=== PATIENT | male | born 1990 | race Hispanic/Latino ===

== ENCOUNTER 2022-04-27 17:04 | Emergency (ER) | payer OTHER ==
[~2022-04-27] VITALS: Ht 170.2 cm; Wt 122.9 kg
[2022-04-27] MEDS ORDERED: ALBU8.5H8 IH (18:58)
[2022-04-27] MEDS ORDERED: PRED20TA3 PO (18:58)
[2022-04-27] MEDS ORDERED: BENZ-39 PO (18:58)
[2022-04-27] MEDS ORDERED: IBUP-2070 PO (18:58)
[2022-04-27] MEDS ORDERED: AZIT500T2 PO (18:58)
[2022-04-27 19:30] VITALS: BP 118/72
== END 2022-04-27 19:38 | disposition home or self-care (01) ==
LOC: EDH 17:04
DX: J40 Bronchitis, not specified as acute or chronic (principal); Z20.822 Contact with and (suspected) exposure to COVID-19
CPT/HCPCS: 99285; 71045; 87635; 87880; 87804 ×2; 93005; C9803

== ENCOUNTER 2022-06-22 19:56 | Emergency (ER) | payer OTHER ==
[~2022-06-22] VITALS: Ht 177.8 cm; Wt 128.4 kg
[~2022-06-22 19:56] MED LIST: ALBU8.5H8 IH; AZIT500T2 PO; BENZ-39 PO; IBUP-2070 PO; PRED20TA3 PO
[2022-06-22 20:28] VITALS: BP 131/77
[2022-06-22] MEDS ORDERED: NAPR500T6 PO (22:12)
[2022-06-22] MEDS ORDERED: IBUPROFEN 600 MG TABLET PO ONE (22:30)
== END 2022-06-22 22:31 | disposition home or self-care (01) ==
LOC: EDH 19:56
DX: M25.561 Pain in right knee (principal); Z79.899 Other long term (current) drug therapy; W19.XXXA Unspecified fall, initial encounter; Y93.89 Activity, other specified; Y92.89 Other specified places as the place of occurrence of the external cause; Y99.8 Other external cause status
CPT/HCPCS: 29505; 73562

== ENCOUNTER → 2022-10-20 | Outpatient (CLI) | payer OTHER ==
[~2022-10-20] MED LIST changes: +NAPR500T6 PO
== END | disposition home or self-care (01) ==
LOC: LAB 10:59
PROVIDERS: ATTEND Internal Medicine
DX: E66.01 Morbid (severe) obesity due to excess calories (principal); R56.9 Unspecified convulsions; R07.9 Chest pain, unspecified; Z86.15 Personal history of latent tuberculosis infection
CPT/HCPCS: 36415; 71046; 86480

== ENCOUNTER → 2022-10-27 | Outpatient (CLI) | payer OTHER | END | disposition home or self-care (01) | LOC: RAH 15:16 | PROVIDERS: ATTEND Internal Medicine | DX: R56.9 Unspecified convulsions (principal) | CPT/HCPCS: 70450 ==

== ENCOUNTER → 2022-11-05 | Outpatient (CLI) | payer OTHER | END | disposition home or self-care (01) | LOC: RAH 13:25 | PROVIDERS: ATTEND Internal Medicine | DX: R55 Syncope and collapse (principal); E11.9 Type 2 diabetes mellitus without complications | CPT/HCPCS: 93306 ==

== ENCOUNTER → 2022-12-25 | Outpatient (CLI) | payer OTHER | END | disposition home or self-care (01) | LOC: SLP 20:31 | PROVIDERS: ATTEND Internal Medicine Critical Care Medicine | DX: G47.33 Obstructive sleep apnea (adult) (pediatric) (principal) | CPT/HCPCS: 95811 ==

== ENCOUNTER → 2023-02-23 | Outpatient (CLI) | payer OTHER | END | disposition home or self-care (01) | LOC: LAB 11:47 | PROVIDERS: ATTEND Psychiatry & Neurology Neurology | DX: G40.909 Epilepsy, unspecified, not intractable, without status epilepticus (principal) | CPT/HCPCS: 36415; 82565; 84520 ==

== ENCOUNTER → 2023-02-25 | Outpatient (CLI) | payer OTHER ==
[~2023-02-25] MED LIST changes: +GADOTERATE MEGLUMINE 10 MMOL/20 ML VIAL IV ONE
== END | disposition home or self-care (01) ==
LOC: RAH 13:07
PROVIDERS: ATTEND Psychiatry & Neurology Neurology
DX: G40.909 Epilepsy, unspecified, not intractable, without status epilepticus (principal)
CPT/HCPCS: 70553; A9575

== ENCOUNTER → 2023-08-02 | Outpatient (CLI) | payer OTHER ==
[~2023-08-02] MED LIST changes: -GADOTERATE MEGLUMINE 10 MMOL/20 ML VIAL IV ONE
[2023-08-02 09:49] LABS: APPEARANCE,URINE CLEAR (CLEAR); BILIRUBIN,URINE NEGATIVE (NEGATIVE); COLOR,URINE LIGHT-YELLOW (YELLOW); GLUCOSE, URINE (UA) NEGATIVE (NEGATIVE); KETONES,URINE NEGATIVE (NEGATIVE); LEUKOCYTE ESTERASE ,URINE NEGATIVE Leu/uL (NEGATIVE); NITRATE,URINE NEGATIVE (NEGATIVE); OCCULT BLOOD,URINE NEGATIVE (NEGATIVE); PROTEIN,URINE NEGATIVE (NEGATIVE); UROBILINOGEN,URINE 0.2 mg/dL (0.2-1.0)
[2023-08-02 09:50] LABS: ADD UA MICROSCOPIC NO
[2023-08-02 09:52] LABS: HEMOGLOBIN A1C 5.3 % (4.0-6.0)
[2023-08-02 09:56] LABS: ALBUMIN 3.9 g/dL (3.5-5.0); BILIRUBIN,TOTAL 0.3 mg/dL (0.2-1.0); POTASSIUM 4.9 mmol/L (3.5-5.1); TOTAL PROTEIN, SERUM 7.3 g/dL (6.0-8.3)
== END | disposition home or self-care (01) ==
LOC: LAB 08:56
PROVIDERS: ATTEND Family Medicine
DX: E11.9 Type 2 diabetes mellitus without complications (principal); R31.0 Gross hematuria; E78.5 Hyperlipidemia, unspecified; I10 Essential (primary) hypertension
CPT/HCPCS: 36415; 80053; 80061; 81003; 82043; 82570; 83036

== ENCOUNTER → 2024-02-04 | Outpatient (CLI) | payer OTHER ==
[2024-02-04 10:10] LABS: HEMOGLOBIN A1C 5.3 % (4.0-6.0)
[2024-02-04 10:17] LABS: ALBUMIN 4.1 g/dL (3.5-5.0); BILIRUBIN,TOTAL 0.8 mg/dL (0.2-1.0); POTASSIUM 4.3 mmol/L (3.5-5.1); TOTAL PROTEIN, SERUM 7.5 g/dL (6.0-8.3)
== END | disposition home or self-care (01) ==
LOC: LAB 08:59
PROVIDERS: ATTEND Family Medicine
DX: I10 Essential (primary) hypertension (principal); E11.9 Type 2 diabetes mellitus without complications; E78.5 Hyperlipidemia, unspecified
CPT/HCPCS: 36415; 80053; 80061; 82043; 82570; 83036

== ENCOUNTER 2024-07-31 20:16 | Emergency (ER) | payer OTHER ==
[~2024-07-31] VITALS: Ht 175.3 cm; Wt 83.0 kg
[~2024-07-31 20:16] MED LIST changes: +NAPR-1506 PO; -NAPR500T6 PO
[2024-07-31] MEDS: ibuPROFEN 800 MG TAB PO ONE (20:34)
[2024-07-31 20:45] LABS: RAPID GROUP A STREP negative (NEGATIVE)
[2024-07-31 21:01] LABS: COVID19 (SARS ANTIGEN RAPID) PRESUMPTIVE NEGATIVE (NEGATIVE); INFLUENZA TYPE B Negative For Type B (NEGATIVE)
[2024-07-31 21:09] LABS: INFLUENZA TYPE A Positive For Type A (NEGATIVE)
[2024-07-31] MEDS ORDERED: IBUP-2077 PO (21:28)
[2024-07-31] MEDS ORDERED: OSEL75 PO (21:28)
[2024-07-31] MEDS: OSELTAMIVIR PHOSPHATE 75 MG CAP PO ONE (21:38)
[2024-07-31 21:40] VITALS: BP 120/76; PULSE 92; RESP 16; TEMP 98.4; O2SAT 98
== END 2024-07-31 21:42 | disposition home or self-care (01) ==
LOC: EDH 20:16
DX: J10.1 Influenza due to other identified influenza virus with other respiratory manifestations (principal); R50.9 Fever, unspecified; E11.9 Type 2 diabetes mellitus without complications; Z20.822 Contact with and (suspected) exposure to COVID-19
CPT/HCPCS: 87426; 87804; 87880

== ENCOUNTER → 2024-12-28 | Outpatient (CLI) | payer OTHER ==
[~2024-12-28] MED LIST changes: +IBUP-2077 PO; +OSEL75 PO
[2024-12-28 10:41] LABS: BASOPHILS # (AUTO) 0.05 K/uL (0.00-0.20); BASOPHILS % (AUTO) 0.9 % (0.0-5.0); EOSINOPHILS # (AUTO) 0.17 K/uL (0.00-0.70); EOSINOPHILS % (AUTO) 2.9 % (0.0-8.0); IMMATURE GRANULOCYTE ABSOLUTE 0.06 K/uL (0-1); LYMPHOCYTES # (AUTO) 1.7 K/uL (1.0-4.8); LYMPHOCYTES % (AUTO) 29.6 % (21.0-51.0); MEAN CORPUSCULAR HEMOGLOBIN 28.9 pg (27.0-33.0); MEAN CORPUSCULAR HGB CONC 33.2 g/dL (32.0-36.0); MONOCYTES # (AUTO) 0.6 K/uL (0.1-1.0); NEUTROPHILS # (AUTO) 3.3 K/uL (1.8-7.7); NEUTROPHILS % (AUTO) 55.6 % (40.0-77.0); PLATELET COUNT (AUTO) 211 K/uL (130-400); RED CELL DISTRIBUTION WIDTH 12.9 % (11.0-15.5); WHITE BLOOD COUNT (AUTO) 5.9 K/uL (4.8-10.8)
[2024-12-28 10:45] LABS: APPEARANCE,URINE CLEAR (CLEAR); BILIRUBIN,URINE NEGATIVE (NEGATIVE); COLOR,URINE LIGHT-YELLOW (YELLOW); GLUCOSE, URINE (UA) NEGATIVE (NEGATIVE); KETONES,URINE NEGATIVE (NEGATIVE); LEUKOCYTE ESTERASE ,URINE NEGATIVE Leu/uL (NEGATIVE); NITRATE,URINE NEGATIVE (NEGATIVE); OCCULT BLOOD,URINE NEGATIVE (NEGATIVE); PROTEIN,URINE NEGATIVE (NEGATIVE); UROBILINOGEN,URINE 0.2 mg/dL (0.2-1.0)
[2024-12-28 10:47] LABS: ADD UA MICROSCOPIC NO
[2024-12-28 10:50] LABS: HEMOGLOBIN A1C 5.3 % (4.0-6.0)
[2024-12-28 11:04] LABS: ALBUMIN 3.9 g/dL (3.5-5.0); BILIRUBIN,TOTAL 0.4 mg/dL (0.2-1.0); POTASSIUM 4.8 mmol/L (3.5-5.1); THYROID STIMULATING HORMONE 5.73 uIU/mL (0.36-3.74); TOTAL PROTEIN, SERUM 7.2 g/dL (6.0-8.3)
== END | disposition home or self-care (01) ==
LOC: LAB 10:12
PROVIDERS: ATTEND Family Medicine
DX: I10 Essential (primary) hypertension (principal); E11.9 Type 2 diabetes mellitus without complications; E78.5 Hyperlipidemia, unspecified; R53.83 Other fatigue
CPT/HCPCS: 36415; 80053; 80061; 80177; 81003; 82043; 82570; 83036; 84270; 84402; 84403; 84439; 84443; 85025

== ENCOUNTER 2025-06-03 18:57 | Emergency (ER) | payer OTHER ==
[~2025-06-03] VITALS: Ht 175.3 cm; Wt 106.1 kg
[~2025-06-03 18:57] MED LIST changes: +IBUP-1492 PO; -IBUP-2070 PO
--- NOTE | 2025-06-03 19:08 | NUR ---
PT CARE ASSUMED AT THIS TIME
--- NOTE | 2025-06-03 19:40 | ERN ---
ED Note History of Present Illness Stated Complaint: MULTIPLE COMPLAINTS Chief Complaint: Multiple Complaints Time Seen by MD: 19:17 Dictation: This is a 34-year-old male who presented to the emergency room with complaints of generalized weakness fevers and nausea vomitings diarrhea all going on for the past 4 days. He denied any blood in the vomit or diarrhea. Nerve was also sick prior to his symptoms He has taken [place] medication Imodium and some other medication but continued to have watery diarrhea and hence he came in for evaluation. No abdominal discomfort. No hematemesis or blood in the stool. Temperature 99.6 pulse 102 respirations 15 blood pressure 139/65 with a pulse oximetry of 97% on room air Patient has a known history of diabetes mellitus type 2 Allergies: Coded Allergies: No Known Drug Allergies (Unverified Allergy, Unknown, 07/31/24) Uncoded Allergies: NKDA (Allergy, Unknown, 11/11/20) Home Meds Active Scripts Nirmatrelvir/Ritonavir (Paxlovid 150-100 mg (Moderate)) 150 Mg (10)-100 Mg (10) Tab.ds.pk, 1 EACH PO BID for 5 Days, #10 TAB 0 Refills Prov:HEIDE SPRING MD 06/03/25 Prednisone (Prednisone) 20 Mg Tablet, 1 TAB PO AD for 6 Days, #14 TAB 0 Refills TAKE 1 TAB BY MOUTH THREE TIMES PER DAY X3 DAYS, THEN TAKE 1 TAB BY MOUTH TWICE A DAY X2 DAYS, THEN TAKE 1 TAB BY MOUTH ONCE A DAY X1 DAY. Prov:HEIDE SPRING MD 06/03/25 Ondansetron (Ondansetron Odt) 4 Mg Tab.rapdis, 4 MG PO Q6HPRN PRN for nausea, #16 TAB 0 Refills Prov:HEIDE SPRING MD 06/03/25 Ibuprofen (Ibuprofen 800 mg Tab) 800 Mg Tab, 800 MG PO Q8H PRN for fever or pain, #30 TAB 0 Refills Prov:JUANY PARK NP 07/31/24 Oseltamivir Phosphate (Tamiflu) 75 Mg Cap, 1 CAP PO BID for 5 Days, #10 CAP 0 Refills Prov:JUANY PARK NP 07/31/24 Naproxen (Naproxen) 500 Mg Tablet.dr, 500 MG PO BIDPC, #15 TAB Prov:JAIR MAXWELLP 06/22/22 Ibuprofen (Ibuprofen) 600 Mg Tablet, 600 MG PO Q6H PRN for PAIN, #15 TAB Prov:JAIR MAXWELL [facility] 04/27/22 Azithromycin (Zithromax Tri-Hernandez) 500 Mg Tablet, 500 MG PO DAILY, #5 TAB Prov:JAIR MAXWELL [facility] 04/27/22 Benzonatate (Tessalon Perles) 100 Mg Cap, 100 MG PO TID, #15 CAP Prov:JAIR MAXWELL [facility] 04/27/22 Albuterol Sulfate (Proair Hfa) 8.5 Gm Hfa.aer.ad, 8.5 GM IH Q6HPRN PRN for WHEEZING, #1 INHALER Prov:JAIR MAXWELL [facility] 04/27/22 Prednisone (Prednisone) 20 Mg Tablet, 1 TAB PO AD for 6 Days, #14 TAB 0 Refills TAKE 1 TAB BY MOUTH THREE TIMES PER DAY X3 DAYS, THEN TAKE 1 TAB BY MOUTH TWICE A DAY X2 DAYS, THEN TAKE 1 TAB BY MOUTH ONCE A DAY X1 DAY. Prov:JAIR MAXWELL [facility] 04/27/22 Past Medical History Past Medical History: Diabetes-Type II Surgical History: None Family History: Negative RN Note Reviewed/Agreed w/PFSH: Yes Review of System Dictation Constitutional: Positive for fever and generalized body weakness,chills, and weight loss Eyes: Negative for injury, pain,redness, and discharge ENT: Negative for injury,pain or swelling Cardiovascular: Negative for chest pain, palpitations, and edema Respiratory: Negative for shortness of breath, cough, and wheezing, Abdomen/GI: Positive for abdominal pain, nausea, vomiting, diarrhea, Back: Negative for injury and pain : Negative for injury, bleeding and discharge MS/Extremity: Negative for injury and deformity Skin: Negative for rash, and discoloration Neuro: Negative for headache, weakness, numbness, tingling, and seizure Psych: Negative for suicide ideation, homicidal ideation, and hallucinations Initial Vital Sign VS Vital Signs Date Time Temp Pulse Resp B/P (MAP) Pulse Ox O2 Delivery O2 Flow Rate FiO2 06/03/25 19:00 99.7 102 15 139/65 97 Room Air 0 06/03/25 19:14 21 Physical Exam Dictation General: awake, alert, NAD Head/Face: Normocephalic, atraumatic Eyes: PERRL, EOMI, vision at baseline ENT: oral cavity clear, TMs clear, no signs of infection Neck: Trachea midline, supple, no nuchal rigidity Cardiovascular: RRR, normal S1/S2, No MRGs, no JVD Respiratory: CTAB, no respiratory distress, No rales or wheezes Abdomen: Soft, non-tender, non-distended, normal bowel sounds, no guarding or rebound. Skin: Warm, dry, normal turgor, no rash MS/Extremity: Pulses equal, no cyanosis, neurovascular intact, FROM Neuro: COAx4, GCS 15, strength 5/5, CN 2-12 intact, normal cerebellar exam, normal gait, Psych: Normal behavior, mood, and affect normal Extremities-trace edema without any palpable cords, Homans sign is negative Results (Laboratory/Radiology) Laboratory/Radiology Laboratory Tests Test 06/03/25 19:37 06/03/25 19:50 White Blood Count 6.7 K/uL (4.8-10.8) Red Blood Count 5.14 MIL/uL (4.50-6.20) Hemoglobin 14.9 g/dL (14.0-18.0) Hematocrit 42.8 % (42-54) Mean Corpuscular Volume 83.3 fL (79-99) Mean Corpuscular Hemoglobin 29.0 pg (27.0-33.0) Mean Corpuscular Hemoglobin Concent 34.8 g/dL (32.0-36.0) Red Cell Distribution Width 12.9 % (11.0-15.5) Platelet Count 209 K/uL (130-400) Mean Platelet Volume 10.6 fL (7.5-10.5) H Immature Granulocyte % (Auto) 0.6 % (0-1) Neutrophils (%) (Auto) 74.1 % (40.0-77.0) Lymphocytes (%) (Auto) 8.9 % (21.0-51.0) L Monocytes (%) (Auto) 13.4 % (3.0-13.0) H Eosinophils (%) (Auto) 2.4 % (0.0-8.0) Basophils (%) (Auto) 0.6 % (0.0-5.0) Neutrophils # (Auto) 4.9 K/uL (1.8-7.7) Lymphocytes # (Auto) 0.6 K/uL (1.0-4.8) L Monocytes # (Auto) 0.9 K/uL (0.1-1.0) Eosinophils # (Auto) 0.16 K/uL (0.00-0.70) Basophils # (Auto) 0.04 K/uL (0.00-0.20) Absolute Immature Granulocyte (auto 0.04 K/uL (0-1) Nucleated Red Blood Cells 0.0 % (0.0-0.19) White Cell Morphology Comment See comments Sodium Level 139 mmol/L (136-145) Potassium Level 3.3 mmol/L (3.5-5.1) L Chloride Level 104 mmol/L (101-111) Carbon Dioxide Level 26 mmol/L (21-32) Blood Urea Nitrogen 14 mg/dL (7-18) Creatinine 1.0 mg/dL (0.5-1.3) Glomerular Filtration Rate Calc 103 mL/min (>90) Random Glucose 99 mg/dL (70-105) Total Calcium 8.3 mg/dL (8.5-10.1) L Lipase 30 U/L (16-77) Influenza Type A Antigen Negative For Type A Influenza Type B Antigen Negative For Type B SARS-CoV-2 Antigen (Rapid) POSITIVE FOR SARS AG Group A Streptococcus Rapid negative (NEGATIVE) Labs Reviewed?: Yes ED Course ED Course Orders Procedure Category Date Status Time Cbc With Differential LAB 06/03/25 Complete 19:28 Basic Metabolic Panel LAB 06/03/25 Complete 19:28 0.9%Nacl 1000ml (Ns PHA 06/03/25 Complete 1000ml) 19:30 Ketorolac PHA 06/03/25 Complete Tromethamine 30mg/Ml 19:30 Ondansetron 4mg Inj PHA 06/03/25 Complete (Zofran 4mg Inj) 19:30 Lipase LAB 06/03/25 Complete 19:28 Influenza Type A & B, LAB 06/03/25 Complete Rapid 19:39 Covid19 (Sars Antigen LAB 06/03/25 Complete Rapid) 19:39 Rapid (Group A Strep) LAB 06/03/25 Complete 19:39 Potassium Bicarb/Cit PHA 06/03/25 Complete Ac 25meq (K-Lyte Ta 21:00 Current Medications Medications (Trade) Dose Ordered Sig/[place] Route PRN Reason Start Time Stop Time Status Last Admin Dose Admin Ketorolac Tromethamine (toRADol) 30 mg ONCE ONCE IVP 06/03/25 19:30 06/03/25 19:31 DC 06/03/25 19:41 Ondansetron HCl (zoFRAN 4MG INJ) 4 mg ONCE ONCE IVP 06/03/25 19:30 06/03/25 19:31 DC 06/03/25 19:42 Potassium Bicarbonate (K-Lyte Tablet Eff 25 Meq Tablet.eff) 25 meq ONCE ONCE PO 06/03/25 21:00 06/03/25 21:01 DC 06/03/25 20:56 Sodium Chloride 1,000 ml @ 0 mls/hr ONCE ONCE IV 06/03/25 19:30 06/03/25 19:31 DC 06/03/25 19:43 Vital Signs Date Time Temp Pulse Resp B/P (MAP) Pulse Ox O2 Delivery O2 Flow Rate FiO2 06/03/25 21:18 99.7 80 16 117/62 100 Room Air* 0 21 06/03/25 20:21 91 16 120/67 100 Room Air* 0 21 06/03/25 19:14 100.6 103 17 144/72 100 Room Air* 0 21 06/03/25 19:00 99.7 102 15 139/65 97 Room Air 0 We will perform diagnostic labs, advanced imaging and administer medications according to the patient's complaint. Once the results are available, will review and personally interpreted the labs to rule out any acute life- threatening emergency the trach require immediate intervention and treatment. I will then re-evaluate the patient after treatment and diagnostic exams have return to determine whether the patient requires any further testing, can safely be discharged home or need further admission to hospital for additional treatment and evaluation. Medical Decision Making MDM Differential diagnosis: Gastroenteritis, enterocolitis, diverticulitis, medication induced Rationale: Tests considered and ordered secondary to shared decision making include: Previous outside records reviewed: Old ER visits. Risk of complication and/or morbidity or mortality of patient management: None Medications-Per medication reconciliation Need for hospitalization: Patient does not meet criteria for hospitalization. Need for emergency major/minor surgery: No There are no social concerns with this patient. Prescription drug management Prescriptions will include symptomatic care Patient's prior external medical records from other ER visits were reviewed by me as indicated. Prior testing and results from previous visits were reviewed. Prior tests were taken into account with medical decision making and resource utilization, independent historian/historians were used to obtain complete medical history. I independently interpreted the test that were performed, results were reviewed by me and considered findings on radiology if ordered. Medical management and examination interpretation discussions were had by me with other qualified healthcare professionals as indicated for the patient's care. Problem List Problem List: (1) Gastroenteritis (2) Dehydration (3) Hypokalemia (4) COVID-19 virus infection DX & DISP Disposition: Discharge Departure Impression: Primary Impression: Gastroenteritis Additional Impressions: Dehydration, Hypokalemia, COVID-19 virus infection Condition: Stable Scripts Nirmatrelvir/Ritonavir (Paxlovid 150-100 mg (Moderate)) 150 Mg (10)-100 Mg (10) Tab.ds.pk 1 EACH PO BID for 5 Days, #10 TAB 0 Refills Prov: HEIDE SPRING MD 06/03/25 Prednisone (Prednisone) 20 Mg Tablet 1 TAB PO AD for 6 Days, #14 TAB 0 Refills TAKE 1 TAB BY MOUTH THREE TIMES PER DAY X3 DAYS, THEN TAKE 1 TAB BY MOUTH TWICE A DAY X2 DAYS, THEN TAKE 1 TAB BY MOUTH ONCE A DAY X1 DAY. Prov: HEIDE SPRING MD 06/03/25 Ondansetron (Ondansetron Odt) 4 Mg Tab.rapdis 4 MG PO Q6HPRN PRN for nausea, #16 TAB 0 Refills Prov: HEIDE SPRING MD 06/03/25 Additional Instructions: Patient and the caregiver have been informed of all the diagnostic tests and the imaging conducted during the today's visit to the emergency room and has verbalized understanding of the results I have personally reviewed and interpreted all diagnostic exams performed here in the ER today as well as the vital signs documented by the nursing staff. The patient is now being discharged to home and should follow up with the primary care physician or the specialist as directed by the ER staff. Follow-up with primary care provider in 1 to 2 days. Take medications as directed here in the emergency room. Okay to continue home medications unless otherwise discussed during your visit in the emergency room today. Return to your nearest emergency room if symptoms worsen or if there is no improvement. Call 911 if you need immediate assistance. Take Tylenol or Motrin [id number] as needed and if no contraindications are present. Increase oral hydration. A wound culture or urine culture was ordered here in the emergency room department please follow-up with primary care provider and advise them to get repeat ports from our facility. If you had any [place] wrap/splints that were applied here, please do not remove them until you see your primary care or specialty. Referrals: SARA FOLEY MD (PCP) HEIDE SPRING MD Jun 03, 2025 19:40
[2025-06-03] MEDS: 0.9%NACL 1000ML 1,000 ML IV ONE (19:43)
[2025-06-03 19:46] LABS: IMMATURE GRANULOCYTE ABSOLUTE 0.04 K/uL (0-1); NUCLEATED RED BLOOD CELLS 0.0 % (0.0-0.19); PLATELET COUNT (AUTO) 209 K/uL (130-400); RED BLOOD CELL COUNT(AUTO) 5.14 MIL/uL (4.50-6.20); RED CELL DISTRIBUTION WIDTH 12.9 % (11.0-15.5); WHITE BLOOD COUNT (AUTO) 6.7 K/uL (4.8-10.8)
[2025-06-03 20:01] LABS: CREATININE 1.0 mg/dL (0.5-1.3); GLOMERULAR FILTR. RATE CALC 103.0 mL/min (>90); GLUCOSE,RANDOM 99.0 mg/dL (70-105); SODIUM SERUM 139.0 mmol/L (136-145); UREA NITROGEN, BLOOD 14.0 mg/dL (7-18)
[2025-06-03 20:18] LABS: RAPID GROUP A STREP negative (NEGATIVE)
[2025-06-03 20:28] LABS: INFLUENZA TYPE A Negative For Type A (NEGATIVE); INFLUENZA TYPE B Negative For Type B (NEGATIVE)
[2025-06-03] MEDS ORDERED: ONDA-243 PO (20:38)
[2025-06-03 20:46] LABS: COVID19 (SARS ANTIGEN RAPID) POSITIVE FOR SARS AG (NEGATIVE)
[2025-06-03] MEDS ORDERED: PRED20TA3 PO (21:02)
[2025-06-03] MEDS ORDERED: NIRM1TAB7 PO (21:02)
[2025-06-03 21:18] VITALS: BP 117/62; PULSE 80; RESP 16; TEMP 99.7; O2SAT 100
== END 2025-06-03 21:22 | disposition home or self-care (01) ==
LOC: EDH 18:57
DX: U07.1 COVID-19 (principal); E87.6 Hypokalemia; E86.0 Dehydration; K52.9 Noninfective gastroenteritis and colitis, unspecified; R11.2 Nausea with vomiting, unspecified; E11.9 Type 2 diabetes mellitus without complications
CPT/HCPCS: 99284; 96374; 96361; 96375; 87426; 80048; 83690; 85025; 87880; 87804 ×2; 36415; J1885; J7030; J2405